=== PATIENT | male | born 1955 | race African-American/Black ===

== ENCOUNTER 2019-04-23 10:33 | Observation (INO) | payer OTHER ==
[~2019-04-23] VITALS: Ht 182.9 cm; Wt 93.0 kg
[2019-04-23] MEDS ORDERED: SODIUM CHLORIDE 0.9% 1000ML 1,000 ML IV STA (10:37)
[2019-04-23] MEDS ORDERED: ASPIRIN 81 MG CHEW TAB PO ONE ×2 (10:45→12:45)
[2019-04-23] MEDS ORDERED: ONDANSETRON HCL INJ 2MG/ML 2ML 2 MG/ML VIAL IV ONE (11:00)
[2019-04-23 11:22] LABS: BASOPHILS % 0.6 % (0.0-1.0); EOSINOPHILS % 0.8 % (0.0-6.0); HEMATOCRIT 33.8 % (38.2-49.6); HEMOGLOBIN 11.7 g/dL (14.0-18.0); LYMPHOCYTES # (AUTO) 0.8 (1.0-3.2); LYMPHOCYTES % 22.4 % (18.0-39.1); MEAN CORPUSCULAR HEMOGLOBIN 33.8 pg (28-32); MEAN CORPUSCULAR HGB CONC 34.6 g/dL (31-35); MEAN CORPUSCULAR VOLUME 97.7 fL (81-99); MONOCYTES # (AUTO) 0.4 (0.2-0.8); MONOCYTES % 10.5 % (4.4-11.3); NEUTROPHILS # (AUTO) 2.3 (2.1-6.9); NEUTROPHILS % 65.4 % (38.7-80.0); PLATELET COUNT 165 x10e3/uL (140-360); RED BLOOD COUNT 3.46 x10e6/uL (4.3-5.7); RED CELL DISTRIBUTION WIDTH 12.2 % (11.7-14.4)
[2019-04-23 11:40] LABS: INR 0.95; PROTHROMBIN TIME 13.2 seconds (11.9-14.5)
[2019-04-23 11:49] LABS: ALBUMIN 4.1 g/dL (3.5-5.0); ALBUMIN/GLOBULIN RATIO 1.2 (0.8-2.0); ANION GAP 15.8 mmol/L (8-16); CALCIUM 9.8 mg/dL (8.4-10.2); CREATININE, SERUM 1.7 mg/dL (0.72-1.25); POTASSIUM 3.8 mmol/L (3.5-5.1)
--- NOTE | 2019-04-23 12:32 | Diagnostic Imaging Report ---
TECHNIQUE: Frontal view of the chest. INDICATION: ^N/V ^[id number] ^1102. COMPARISON: None. FINDINGS: LINES/TUBES: None. LUNGS: The lungs are well inflated and clear. No consolidation or pulmonary edema. PLEURA: No pneumothorax or significant pleural effusion. HEART AND MEDIASTINUM: The cardiomediastinal silhouette is within normal limits. SOFT TISSUES AND BONES: Slightly increased density over the scapula appears nonaggressive and is possibly overlapping tissue. IMPRESSION: No acute cardiopulmonary abnormalities. Signed by: Marty Alexander JR, MD on 04/23/2019 12:29 PM
[2019-04-23] MEDS ORDERED: ONDANSETRON HCL INJ 2MG/ML 2ML 2 MG/ML VIAL IV PRN ×2 (12:45→16:30)
[2019-04-23] MEDS: SODIUM CHLORIDE 0.9% 1000ML 1,000 ML IV SCH (12:50)
[2019-04-23] MEDS ORDERED: HYDROCODON-ACE1 EAC9 PO (12:54)
[2019-04-23] MEDS ORDERED: ATORVASTATIN CA40 MG PO (12:54)
[2019-04-23] MEDS ORDERED: HYDRALAZINE HC100 MG PO (12:54)
[2019-04-23] MEDS ORDERED: CLONIDINE HCL0.2 MG PO (12:54)
[2019-04-23] MEDS ORDERED: NIFEDIPINE ER90 M1 PO (12:54)
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
--- OUTSIDE RECORDS SUMMARY | 2019-04-23 14:01 | XMS REPORT ---
Author Author [facility] Organization [facility] Address Unknown Phone Unavailable Care Team Providers Care Superintendent Power Name Role Phone BANG RIVAS Unavailable Unavailable Payers Payer Name Policy Type Policy Number Effective Date Expiration Date Problems This patient has no known problems. Allergies, Adverse Reactions, Alerts Allergy Name Allergy Type Status Severity Reaction(s) Onset Date Inactive Date Treating Clinician Comments ibuprofen DA Active AR 2019-02-21 00:00:00 Medications This patient has no known medications. Results Test Description Test Time Test Comments Text Results Atomic Results Result Comments CHEST SINGLE (PORTABLE) 2019-04-23 12:26:00 [place] [address] Patient Name: RAJANI DE LA GARZA MR #: [id number] : 1955 Age/Sex: 64/M Req #: [id number] Adm Physician: Ordered by: BANG RIVAS DO Report #: [id number] Location: ER Room/Bed: Procedure: [id number] DX/CHEST SINGLE (PORTABLE) Exam Date: 04/23/19 Exam Time: 1102 REPORT STATUS: Signed TECHNIQUE: Frontal view of the chest. INDICATION: N/V [id number] 1101. COMPARISON: None. FINDINGS: LINES/TUBES: None. LUNGS: The lungs are well inflated and clear. No consolidation or pulmonary edema. PLEURA: No pneumothorax or significant pleural effusion. HEART AND MEDIASTINUM: The cardiomediastinal silhouette is within normal limits. SOFT TISSUES AND BONES: Slightly increased density over the scapula appears nonaggressive and is possibly overlapping tissue. IMPRESSION: No acute cardiopulmonary abnormalities. Signed by: Marty Alexander JR, MD on 04/23/2019 12:29 PM Dictated By: MARTY ALEXANDER MD 1229 Transcribed By: WILSON on 04/23/19 1229 COPY TO: BANG RIVAS DO BASIC METABOLIC PANEL 2019-02-25 03:44:00 SODIUM (test code=NA) 141 mmol/L 136-145 POTASSIUM (test code=K) 3.6 mmol/L 3.5-5.1 CHLORIDE (test code=CL) 108.0 mmol/L 98-107 CARBON DIOXIDE (test code=CO2) 27.0 mmol/L 21-32 ANION GAP (test code=GAP) 9.6 10-20 GLUCOSE (test code=GLU) 114 mg/dL 74-106 BLOOD UREA NITROGEN (test code=BUN) 19 mg/dL 7-18 GLOMERULAR FILTRATION RATE (test code=GFR) 47 mL/min >=60 Estimated GFR by using Modified MDRD formula.Chronic kidney disease is defined as either kidney damageor GFR <60 mL/min/1.73 m2 for >3 months. CREATININE (test code=CREAT) 1.80 mg/dL 0.7-1.3 BUN/CREATININE RATIO (test code=BUN/CREA) 10.4 10-20 CALCIUM (test code=CA) 9.0 mg/dL 8.5-10.1 BASIC METABOLIC [id number] 03:28:00* Test Item Value Reference Range Comments SODIUM (test code=NA) 141 mmol/L 136-145 POTASSIUM (test code=K) 3.6 mmol/L 3.5-5.1 CHLORIDE (test code=CL) 108.0 mmol/L 98-107 CARBON DIOXIDE (test code=CO2) mmol/L 21-32 ANION GAP (test code=GAP) 10-20 GLUCOSE (test code=GLU) mg/dL 74-106 BLOOD UREA NITROGEN (test code=BUN) mg/dL 7-18 GLOMERULAR FILTRATION RATE (test code=GFR) mL/min >=60 CREATININE (test code=CREAT) mg/dL 0.7-1.3 BUN/CREATININE RATIO (test code=BUN/CREA) 10-20 CALCIUM (test code=CA) mg/dL 8.5-10.1 BASIC METABOLIC [id number] 14:41:00* Test Item Value Reference Range Comments SODIUM (test code=NA) 144 mmol/L 136-145 POTASSIUM (test code=K) 3.8 mmol/L 3.5-5.1 CHLORIDE (test code=CL) 110.0 mmol/L 98-107 CARBON DIOXIDE (test code=CO2) 26.0 mmol/L 21-32 ANION GAP (test code=GAP) 11.8 10-20 GLUCOSE (test code=GLU) 91 mg/dL 74-106 BLOOD UREA NITROGEN (test code=BUN) 20 mg/dL 7-18 GLOMERULAR FILTRATION RATE (test code=GFR) 50 mL/min >=60 Estimated GFR by using Modified MDRD formula.Chronic kidney disease is defined as either kidney damageor GFR <60 mL/min/1.73 m2 for >3 months. CREATININE (test code=CREAT) 1.70 mg/dL 0.7-1.3 BUN/CREATININE RATIO (test code=BUN/CREA) 11.5 10-20 CALCIUM (test code=CA) 9.4 mg/dL 8.5-10.1 BASIC METABOLIC [id number] 14:38:00* Test Item Value Reference Range Comments SODIUM (test code=NA) 144 mmol/L 136-145 POTASSIUM (test code=K) 3.8 mmol/L 3.5-5.1 CHLORIDE (test code=CL) 110.0 mmol/L 98-107 CARBON DIOXIDE (test code=CO2) mmol/L 21-32 ANION GAP (test code=GAP) 10-20 GLUCOSE (test code=GLU) mg/dL 74-106 BLOOD UREA NITROGEN (test code=BUN) mg/dL 7-18 GLOMERULAR FILTRATION RATE (test code=GFR) mL/min >=60 CREATININE (test code=CREAT) mg/dL 0.7-1.3 BUN/CREATININE RATIO (test code=BUN/CREA) 10-20 CALCIUM (test code=CA) mg/dL 8.5-10.1 - PULM VENT PERF [id number] 11:37:00 FAX: Cassandra Fernandez MD [phone] [place]: St: ADM FAX: Negro Cardona MD [phone] FAX: Tyler Davison NP [phone] Name: RAJANI DE LA GARZA [facility] : 1955 Age/S: 63/M [address] [facility] Unit #: [id number] [place] [address] Phys: Tyler Davison NP Acct: [id number] Dis Date: Status: ADM IN PH ONE #: [phone] Exam Date: 02/23/2019 1132 FAX #: [phone] Reason: R/o pe EXAMS: CPT CODE: [id number] PU LM VENT PERF IMAG 41565 TECHNIQUE - PU LM VENT PERF IMAG . 4.8 mCi xenon-133. 5.4 mCi power technician 99 MAA. COMPARISON: None provided. HISTORY: 63 years Male R/o pe FINDINGS: There are no perfusion defects in the lung baker. There are no ventilation def ects in the lung field. Low probability pulmonary emboli. There are no mismatched ventilation perfusion defects. IMP RESSION: Low probability pulmonary emboli. Electronically Si gned by Darshan Rust M.D. on 02/23/2019 at 2057 Reported a nd signed by: Darshan Rust M.D. CC: Cassandra Gibson MD; Franklin Castañeda MD; Tyler Davison NP Technologist: Ruth Shahid RT(N) Trnscrd Date/Time/By: 02/23/2019 (2650) : By: [email or web address] Orig Print D/T: S: 02/23/2019 (8686) PAGE 1 Signed Report BASIC METABOLIC PANEL 2019-02-23 05:18:00* Test Item Value Reference Range Comments SODIUM (test code=NA) 140 mmol/L 136-145 POTASSIUM (test code=K) 3.5 mmol/L 3.5-5.1 CHLORIDE (test code=CL) 108.0 mmol/L 98-107 CARBON DIOXIDE (test code=CO2) 25.0 mmol/L 21-32 ANION GAP (test code=GAP) 10.5 10-20 GLUCOSE (test code=GLU) 91 mg/dL 74-106 BLOOD UREA NITROGEN (test code=BUN) 26 mg/dL 7-18 GLOMERULAR FILTRATION RATE (test code=GFR) 37 mL/min >=60 Estimated GFR by using Modified MDRD formula.Chronic kidney disease is defined as either kidney damageor GFR <60 mL/min/1.73 m2 for >3 months. CREATININE (test code=CREAT) 2.20 mg/dL 0.7-1.3 BUN/CREATININE RATIO (test code=BUN/CREA) 11.8 10-20 CALCIUM (test code=CA) 9.2 mg/dL 8.5-10.1 THROMBOPLASTIN TIME [id number] 20:28:00* Test Item Value Reference Range Comments THROMBOPLASTIN TIME PARTIAL (test code=PTT) 24.6 seconds 25.0-36.5 IS PATIENT ON ANTICOAGULANTS? [id number] 20:08:00* Test Item Value Reference Range Comments HEMATOCRIT (test code=HCT) 33.4 % 42.0-52.0 PLATELET [id number] 20:08:00* Test Item Value Reference Range Comments PLATELET COUNT (test code=PLT) 133 K/mm3 150-450 - US RETROPERITONEAL [id number] 16:01:00 Name: RAJANI DE LA GARZA [facility] : 1955 Age/S: 63 / M [address] Unit #: [id number] Loc: [place] [address] Phys: Tyler Davison [employer] Acct: [id number] Dis Date: Status: ADM IN PHONE #: [phone] Exam Date: 02/22/2019 1505 FAX #: [phone] Reason: ERVIN VS CKD EXAMS: CPT CODE: [id number] US RETROPERITONEAL COM 33452 TECHNIQUE - US RETROPERITONEAL COM . COMPARISON: None provided. HISTORY: 63 years Male ERVIN VS CKD FINDINGS: Right Kidney: 10.07 x 4.2 x 5.8 cm. Increased echogenicity. No stones. No hydronephrosis. 2.8 cm right kidney cyst.. Right renal cortex measures 1.2 cm. Left Kidney: 10.0 x 5.3 x 5.2 cm. Increased echogenicity. No stones. No hydronephrosis. No focal lesion. Left renal cortex 1.5 cm. Urinary bladder: Urinary bladder is normal. IMPRESSION: Right kidney cyst. Increased echogenicity of the kidneys bilaterally. at 1601 Reported and signed by: Darshan Rust M.D. CC: Cassandra Gibson MD; Negro Castañeda MD; Tyler Davison NP Technologist: [facility] Date/Time: 02/22/2019 (1601) t.RODNEY Orig Print D/T: S: 02/22/2019 (7187) Probe: PAGE 1 Signed Report URINALYSIS [id number] 13:14:00* Test Item Value Reference Range Comments UA COLOR (test code=COLU) YELLOW YELLOW UA APPEARANCE (test code=APPU) CLEAR CLEAR UA GLUCOSE DIPSTICK (test code=DGLUU) NEGATIVE mg/dL NEGATIVE UA BILIRUBIN DIPSTICK (test code=BILU) NEGATIVE mg/dL NEGATIVE UA KETONE DIPSTICK (test code=KETU) NEGATIVE mg/dL NEGATIVE UA SPECIFIC GRAVITY (test code=SGU) 1.018 1.001-1.035 UA BLOOD DIPSTICK (test code=TABITHA) Negative mg/dL NEGATIVE UA PH DIPSTICK (test code=MIKE) 5.0 5.0-8.0 UA PROTEIN DIPSTICK (test code=PROU) 20 (Trace) mg/dL NEGATIVE UA UROBILINIOGEN DIPSTICK (test code=URO) Normal mg/dL NEGATIVE UA NITRITE DIPSTICK (test code=KATERINA) NEGATIVE NEGATIVE UA LEUKOCYTE ESTERASE W REFLEX (test code=LEUUR) NEGATIVE Samy/uL NEGATIVE UA WBC (test code=WBCU) 0-5 per HPF 0-5 UA RBC (test code=RBCU) 0-2 #/HPF 0-5 UA EPITHELIAL CELLS (test code=EPIU) FEW per HPF FEW UA BACTERIA (test code=BACU) FEW #/HPF NONE UA MUCUS (test code=MUCU) FEW #/LPF FEW Urine Source? Clean CatchDRUGS OF ABUSE SCREEN [id number] 13:14:00* Test Item Value Reference Range Comments URN COCAINE (test code=COCAURN) NEGATIVE <300 ng/mL URN CANNABINOIDS (test code=CANNABURN) NEGATIVE <50 ng/mL URN AMPHETAMINE (test code=AMPHETURN) NEGATIVE <1000 ng/mL URN BARBITURATE (test code=BARBITURN) NEGATIVE <200 ng/mL URN BENZODIAZEPINE (test code=BENZOURN) NEGATIVE <200 ng/mL URN OPIATES (test code=OPIATURN) NEGATIVE <300 ng/mL URN PHENCYCLIDINE (PCP) (test code=PHENCURN) NEGATIVE <25 ng/mL URN METHADONE (test code=METHAURN) NEGATIVE <300 ng/mL Urine Source? Clean CatchURINALYSIS [id number] 13:04:00* Test Item Value Reference Range Comments UA COLOR (test code=COLU) YELLOW YELLOW UA APPEARANCE (test code=APPU) CLEAR CLEAR UA GLUCOSE DIPSTICK (test code=DGLUU) NEGATIVE mg/dL NEGATIVE UA BILIRUBIN DIPSTICK (test code=BILU) NEGATIVE mg/dL NEGATIVE UA KETONE DIPSTICK (test code=KETU) NEGATIVE mg/dL NEGATIVE UA SPECIFIC GRAVITY (test code=SGU) 1.018 1.001-1.035 UA BLOOD DIPSTICK (test code=TABITHA) Negative mg/dL NEGATIVE UA PH DIPSTICK (test code=MIKE) 5.0 5.0-8.0 UA PROTEIN DIPSTICK (test code=PROU) 20 (Trace) mg/dL NEGATIVE UA UROBILINIOGEN DIPSTICK (test code=URO) Normal mg/dL NEGATIVE UA NITRITE DIPSTICK (test code=KATERINA) NEGATIVE NEGATIVE UA LEUKOCYTE ESTERASE W REFLEX (test code=LEUUR) NEGATIVE Samy/uL NEGATIVE UA WBC (test code=WBCU) 0-5 per HPF 0-5 UA RBC (test code=RBCU) 0-2 #/HPF 0-5 UA EPITHELIAL CELLS (test code=EPIU) FEW per HPF FEW UA BACTERIA (test code=BACU) FEW #/HPF NONE UA MUCUS (test code=MUCU) FEW #/LPF FEW Urine Source? Clean CatchDRUGS OF ABUSE SCREEN [id number] 13:04:00* Test Item Value Reference Range Comments URN COCAINE (test code=COCAURN) <300 ng/mL URN CANNABINOIDS (test code=CANNABURN) <50 ng/mL URN AMPHETAMINE (test code=AMPHETURN) <1000 ng/mL URN BARBITURATE (test code=BARBITURN) <200 ng/mL URN BENZODIAZEPINE (test code=BENZOURN) <200 ng/mL URN OPIATES (test code=OPIATURN) <300 ng/mL URN PHENCYCLIDINE (PCP) (test code=PHENCURN) <25 ng/mL URN METHADONE (test code=METHAURN) <300 ng/mL Urine Source? Clean [id number] 08:16:00* Test Item Value Reference Range Comments TROPONIN-I (test code=TROPI) 0.058 ng/mL 0-0.045 Results previously called COMMENTS TO LEDGER CLERK: COLLECT 3 HOURS AFTER PREVIOUS [id number] 06:00:00* Test Item Value Reference Range Comments TROPONIN-I (test code=TROPI) 0.072 ng/mL 0-0.045 RESULT VERIFIED BY REPEAT ANALYSIS COMMENTS TO LEDGER CLERK: COLLECT 3 HOURS AFTER PREVIOUS SAMPLELIPID PROFILE (CORONARY RISK)2019-02-22 06:00:00* Test Item Value Reference Range Comments TRIGLYCERIDES (test code=TRIG) 103 mg/dL 20-150 CHOLESTEROL (test code=CHOL) 226 mg/dL 0-200 CHOLESTEROL/HDL RATIO (test code=CHOLHDL) 2.0 RATIO 0-4.9 RISK ASSOCIATED WITH CHOL/HDL RATIOS: Risk Male Female1/2 AVERAGE 3.43 3.27AVERAGE 4.97 4.442X AVERAGE 9.55 7.053X AVERAGE 23.39 11.04 REFERENCE VALUE IS RELATED TO RISK LEVELS ASRECOMMENDED BY THE [facility]. HEART, LUNG, AND BLOOD INST. HDL CHOLESTEROL (test code=HDL) 82 mg/dL 40-60 LIPOPROTEIN LDL (test code=LDL) 120 mg/dL 100-129 RN PERSONNEL, CONTACT PHYSICIAN IMMEDIATELY IF THIS IS A STROKE, AMI OR CAROTID STENOSIS PATIENT WHEN THE LDL >100 (1ST OCCURENCE, THIS ADMISSION) Reference Interval: mg/dL mmol/L Optimal <100 <2.6Near/above optimal 100-129 2.6- 3.3Borderline High 130-159 3.4-4.1High 160-189 4.1-4.9Very High >=190 >=4.9=========This LDL result is a direct measurement.========= BASIC METABOLIC [id number] 05:52:00* Test Item Value Reference Range Comments SODIUM (test code=NA) 137 mmol/L 136-145 POTASSIUM (test code=K) 3.3 mmol/L 3.5-5.1 CHLORIDE (test code=CL) 102.0 mmol/L 98-107 CARBON DIOXIDE (test code=CO2) 25.0 mmol/L 21-32 ANION GAP (test code=GAP) 13.3 10-20 GLUCOSE (test code=GLU) 122 mg/dL 74-106 BLOOD UREA NITROGEN (test code=BUN) 23 mg/dL 7-18 GLOMERULAR FILTRATION RATE (test code=GFR) 34 mL/min >=60 Estimated GFR by using Modified MDRD formula.Chronic kidney disease is defined as either kidney damageor GFR <60 mL/min/1.73 m2 for >3 months. CREATININE (test code=CREAT) 2.40 mg/dL 0.7-1.3 BUN/CREATININE RATIO (test code=BUN/CREA) 9.6 10-20 CALCIUM (test code=CA) 9.0 mg/dL 8.5-10.1 CREATINE KINASE (CK)2019-02-22 05:52:00* Test Item Value Reference Range Comments CREATINE KINASE (CK) (test code=CK) 591 IUnit/L 26-208 [id number] 05:52:00* Test Item Value Reference Range Comments CKMB (test code=CKMBT) 3.1 ng/mL 0-6.0 BASIC METABOLIC [id number] 05:44:00* Test Item Value Reference Range Comments SODIUM (test code=NA) 137 mmol/L 136-145 POTASSIUM (test code=K) 3.3 mmol/L 3.5-5.1 CHLORIDE (test code=CL) 102.0 mmol/L 98-107 CARBON DIOXIDE (test code=CO2) mmol/L 21-32 ANION GAP (test code=GAP) 10-20 GLUCOSE (test code=GLU) mg/dL 74-106 BLOOD UREA NITROGEN (test code=BUN) mg/dL 7-18 GLOMERULAR FILTRATION RATE (test code=GFR) mL/min >=60 CREATININE (test code=CREAT) mg/dL 0.7-1.3 BUN/CREATININE RATIO (test code=BUN/CREA) 10-20 CALCIUM (test code=CA) mg/dL 8.5-10.1 CREATINE KINASE (CK)2019-02-22 05:44:00* Test Item Value Reference Range Comments CREATINE KINASE (CK) (test code=CK) IUnit/L 26-208 [id number] 05:44:00* Test Item Value Reference Range Comments CKMB (test code=CKMBT) ng/mL 0-6.0 CBC W/AUTO [id number] 05:44:00* Test Item Value Reference Range Comments WHITE BLOOD CELL (test code=WBC) 9.6 K/mm3 4.5-12.5 RED BLOOD CELL (test code=RBC) 3.60 mill/mm3 4.0-5.8 HEMOGLOBIN (test code=HGB) 12.0 gram/dL 13.0-17.5 HEMATOCRIT (test code=HCT) 34.6 % 42.0-52.0 MEAN CELL VOLUME (test code=MCV) 96.1 fL 80-98 MEAN CELL HGB (test code=MCH) 33.3 picogram 27.0-33.0 MEAN CELL HGB CONCETRATION (test code=MCHC) 34.7 gram/dL 33.0-36.0 RED CELL DISTRIBUTION WIDTH (test code=RDW) 12.2 % 11.6-16.2 RED CELL DISTRIBUTION WIDTH SD (test code=RDW-SD) 42.8 fL 37.0-51.0 PLATELET COUNT (test code=PLT) 157 K/mm3 150-450 MEAN PLATELET VOLUME (test code=MPV) 11.0 fL 6.7-11.0 NEUTROPHIL % (test code=NT%) 75.4 % 39.0-69.0 IMMATURE GRANULOCYTE % (test code=IG%) 0.3 % 0.0-5.0 LYMPHOCYTE % (test code=LY%) 16.8 % 25.0-55.0 MONOCYTE % (test code=MO%) 7.1 % 0.0-10.0 EOSINOPHIL % (test code=EO%) 0.2 % 0.0-5.0 BASOPHIL % (test code=BA%) 0.2 % 0.0-1.0 NUCLEATED RBC % (test code=NRBC%) 0.0 % 0-0 NEUTROPHIL # (test code=NT#) 7.25 K/mm3 1.8-7.7 IMMATURE GRANULOCYTE # (test code=IG#) 0.03 x10 3/uL 0-0.03 LYMPHOCYTE # (test code=LY#) 1.62 K/mm3 1.0-5.0 MONOCYTE # (test code=MO#) 0.68 K/mm3 0-0.8 EOSINOPHIL # (test code=EO#) 0.02 K/mm3 0.0-0.5 BASOPHIL # (test code=BA#) 0.02 K/mm3 0.0-0.2 NUCLEATED RBC # (test code=NRBC#) 0.00 K/mm3 0.0-0.1 MANUAL DIFF REQUIRED (test code=MDIFF) NO B-TYPE NATRIURETIC [id number] 03:12:00* Test Item Value Reference Range Comments B-TYPE NATRIURETIC PEPTIDE (test code=BNP) 66.4 pgram/mL 0-100 Previously reported result: 66.4 pgram/mLEdited by: FREDERICS on 02/22/19:0312 - XR TOE(S) 2+V [id number] 01:53:00 FAX: Otto Vaz [phone] [place]: St: ADM FAX: Cassandra Fernandez MD [phone] FAX: Negro Cardona MD [phone] Name: RAJANI DE LA GARZA [facility] : 1955 Age/S: 63/M [address] [facility] Unit #: [id number] Loc: [place] [address] Phys: Otto Rouse MD Acct: [id number] Dis Date: Status: ADM IN [facility] #: [phone] Exam Date: 02/22/2019 0120 FAX #: [phone] Reason: 2ND TOE RDUCTION EXAMS: CPT CODE: [id number] XR TOE(S) 2+[place] [address] HISTORY: 2nd t oe reduction Location: C3 FINDINGS: 4 images of the r ight toes are provided. There has been reduction of previously seen sublu xation of the 2nd PIP joint. IMPRESSION: 1. Re duction of previously seen 2nd PIP dislocation. Electronically Cydney d by Bobby Kaye MD on 02/22/2019 at 0153 Reported and signed by: Bobby Kaye MD CC: Otto Rouse; Cassandra Gibson MD; Negro Castañeda MD Technologist: Debbie Lopez Trnscrd Date/Time/By: 02/22/2019 (4053) : By: [email or web address] Orig Print D/T: S: 02/22/2019 (9736) PAGE 1 Signed Report B-TYPE NATRIURETIC [id number] 23:22:00* Test Item Value Reference Range Comments B-TYPE NATRIURETIC PEPTIDE (test code=BNP) 66.4 pgram/mL 0-100 BASIC METABOLIC [id number] 22:33:00* Test Item Value Reference Range Comments SODIUM (test code=NA) 137 mmol/L 136-145 POTASSIUM (test code=K) 4.0 mmol/L 3.5-5.1 CHLORIDE (test code=CL) 104.0 mmol/L 98-107 CARBON DIOXIDE (test code=CO2) 24.0 mmol/L 21-32 ANION GAP (test code=GAP) 13.0 10-20 GLUCOSE (test code=GLU) 138 mg/dL 74-106 BLOOD UREA NITROGEN (test code=BUN) 23 mg/dL 7-18 GLOMERULAR FILTRATION RATE (test code=GFR) 28 mL/min >=60 Estimated GFR by using Modified MDRD formula.Chronic kidney disease is defined as either kidney damageor GFR <60 mL/min/1.73 m2 for >3 months. CREATININE (test code=CREAT) 2.80 mg/dL 0.7-1.3 BUN/CREATININE RATIO (test code=BUN/CREA) 8.2 10-20 CALCIUM (test code=CA) 9.8 mg/dL 8.5-10.1 CREATINE KINASE (CK)2019-02-21 22:33:00* Test Item Value Reference Range Comments CREATINE KINASE (CK) (test code=CK) 742 IUnit/L 26-208 [id number] 22:33:00* Test Item Value Reference Range Comments MAGNESIUM (test code=MAG) 2.2 mg/dL 1.8-2.4 [id number] 22:33:00* Test Item Value Reference Range Comments TROPONIN-I (test code=TROPI) 0.079 ng/mL 0-0.045 Results called to [id number] by TORI 02/21/19 2226Critical results verified and read back by Nurse? Y BASIC METABOLIC [id number] 22:16:00* Test Item Value Reference Range Comments SODIUM (test code=NA) 137 mmol/L 136-145 POTASSIUM (test code=K) 4.0 mmol/L 3.5-5.1 CHLORIDE (test code=CL) 104.0 mmol/L 98-107 CARBON DIOXIDE (test code=CO2) mmol/L 21-32 ANION GAP (test code=GAP) 10-20 GLUCOSE (test code=GLU) mg/dL 74-106 BLOOD UREA NITROGEN (test code=BUN) mg/dL 7-18 GLOMERULAR FILTRATION RATE (test code=GFR) mL/min >=60 CREATININE (test code=CREAT) mg/dL 0.7-1.3 BUN/CREATININE RATIO (test code=BUN/CREA) 10-20 CALCIUM (test code=CA) mg/dL 8.5-10.1 CREATINE KINASE (CK)2019-02-21 22:16:00* Test Item Value Reference Range Comments CREATINE KINASE (CK) (test code=CK) IUnit/L 26-208 [id number] 22:16:00* Test Item Value Reference Range Comments MAGNESIUM (test code=MAG) mg/dL 1.8-2.4 [id number] 22:16:00* Test Item Value Reference Range Comments TROPONIN-I (test code=TROPI) ng/mL 0-0.045 - CT C-SPINE W/O [id number] 21:42:00 Name: RAJANI DE LA GARZA [facility] : 1955 Age/S: 63 / M [address] [facility] Unit #: [id number] Loc: [place] [address] Phys: Otto Rouse MD Acct: [id number] Dis Date: Status: REG ER PHONE #: [phone] Exam Date: 02/21/2019 2135 FAX #: [phone] Reason: NECK PAIN S/P FALL EXAMS: CPT CODE: [id number] CT C-SPINE W/O CONTRAST 40853 HISTORY: NECK PAIN S/P FALL TECHNIQUE: 2.[address] of the cervical spine. Sagittal and coronal reformatted images were generated. Automated exposure control for dose reduction. COMPARISON: None FINDINGS: No acute fracture or subluxation. Craniocervical and cervicothoracic articulations are appropriate. Degenerative changes of the anterior atlantoaxial joint. Straightening of the cervical lordosis. Vertebral body alignment is satisfactory. Vertebral body heights are preserved. Severe disc space loss with disc/osteophyte complex and uncovertebral arthrosis from C2-C3 through C4-C5. Mild-moderate disc space loss with disc bulge and marginal osteophytes from C5-C6 through C7-T1. Multilevel cervical facet arthrosis, most severe at right C5-C6. Mild central canal stenosis from C2-C3 through C4-C5. Moderate-severe foraminal stenosis at C3-C4 and C4-C5. Mild bilateral foraminal stenosis at C7-T1. No prevertebral or paraspinal soft tissue abnormality. Visualized posterior fossa contents are grossly unremarkable. Lung apices are clear. IMPRESSION: No acute fracture or subluxation of the cervical spine. at 2141 Reported and signed by: Laura Ortiz D.O. CC: Otto Rouse MD; Negro Castañeda MD Technologist:Kit Vallejo, RT(R)(CT); ... CTDI: DLP: Trnscb Date/Time: 02/21/2019 ( 2141) t.SDR.LDP1 Orig Print D/T: S: 02/21/2019 (2144) PAGE 1 Signed Report - CT HEAD/BRAIN W/O [id number] 21:37:00 Name: RAJANI DE LA GARZA [facility] : 1955 Age/S: 63 / M [address] [facility] Unit #: [id number] [place] [address] Phys: Otto Rouse MD Acct: [id number] Dis Date: Status: REG ER PHONE #: [phone] Exam Date: 02/21/20192134 FAX #: [phone] Reason: HEAD PAIN S/P FALL EXAMS: CPT CODE: [id number] CT HEAD/BRAIN W/O CONT 80518 HISTORY: HEAD PAIN S/P FALL TECHNIQUE: Noncontrast 2.[address] of the head. Examination acquired within 24 hours of arrival. Automated exposure control for dose reduction; DLP: 709 mGy-cm. COMPARISON: 09/14/14 FINDINGS: No acute hemorrhage. No CT evidence of acute infarct. Mild periventricular chronic microvascular ischemic changes. No intracranial mass or mass effect. No hydrocephalus. No extra-axial fluid collection. Mild left maxillary sinus mucosal thickening. Mastoid air cells and middle ear cavities are clear. Orbital contents are unremarkable. Calvarium and skull base are intact. IMPRESSION: No acute intracranial process. at 2137 Reported and signed by: Laura Ortiz D.O. CC: Otto Rouse MD; Negro Castañeda MD Technologist:Kit Vallejo, RT(R)(CT); ... CTDI: DLP: Trnscb Date/Time: 02/21/2019 (2136) [email or web address] Orig Print D/T: S: 02/21/2019 (2140) PAGE 1 Signed Report - XR FOOT 3 + V [id number] 21:17:00 FAX: Otto Vaz [phone] [place]: [address] St: PRE FAX: Negro Cardona MD [phone] Name: RAJANI DE LA GARZA [facility] : 1955 Age/S: 63/M [address] [facility] Unit #: [id number] Loc: [place] [address] Phys: Otto Rouse MD Acct: [id number] Dis Date: Status: PRE ER PHONE #: [phone] Exam Date: 02/21/20192112 FAX #: [phone] Reason: 2ND TOE PAIN S/P FALL EXAMS: CPT CODE: [id number] XR FOOT 3 + [place] [id number] CLINICAL HISTORY: 2ND TOE PAIN S/P FALL TECHNIQUE: AP, oblique, and lateral views of the right foot COMPARISON: None FINDINGS: No acute fracture or dislocation. Bony tr abecular pattern is unremarkable. No cortical destruction or periosteal re action. Achilles and plantar calcaneal osteophytes. Mild degenerative morse ges of the talonavicular and naviculocuneiform joints. 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 Dorsal di slocation of the 2nd PIP joint. Forefoot soft tissue swelling. IMPRESSION: Dorsal dislocation of the 2nd PIP cara nt. No associated fracture. at 2116 Reported and signed by: Laura Ortiz D.O. CC: Otto Rouse MD; Negro Castañeda MD Technologist: Elly Fernandez Trnscrd Date/Time/By: 02/21/2019 (2116) : By: [email or web address] Orig Print D/T: S: 02/2019 (2119) PAGE 1 Signed Repo rt CBC W/O [id number] 20:59:00* Test Item Value Reference Range Comments WHITE BLOOD CELL (test code=WBC) 10.1 K/mm3 4.5-12.5 RED BLOOD CELL (test code=RBC) 3.91 mill/mm3 4.0-5.8 HEMOGLOBIN (test code=HGB) 12.7 gram/dL 13.0-17.5 HEMATOCRIT (test code=HCT) 38.9 % 42.0-52.0 MEAN CELL VOLUME (test code=MCV) 99.5 fL 80-98 MEAN CELL HGB (test code=MCH) 32.5 picogram 27.0-33.0 MEAN CELL HGB CONCETRATION (test code=MCHC) 32.6 gram/dL 33.0-36.0 RED CELL DISTRIBUTION WIDTH (test code=RDW) 12.2 % 11.6-16.2 PLATELET COUNT (test code=PLT) 167 K/mm3 150-450 MEAN PLATELET VOLUME (test code=MPV) 10.7 fL 6.7-11.0 CT Abdomen w/ + w/o [id number] 15:45:04Patient: ARJANI DE LA GARZA Date/Time08/21/2018 15:27 CSTReason for ExamR16.0ReportCT OF THE ABDOMEN WITH AND WITHOUT CONTRASTLOCATION CODE: R 16History: R 16Technique: Axial contrast and noncontrast enhanced CT images of the abdomen performed with arterial and 5 minute venous delays. The images were reviewed in soft tissue, lung and bone windows. Sagittal and coronal images were reformatted. No PO contrast was administered.One or more the following dose reduction techniques is utilized: Use of iterative reconstruction, automated exposure control, adjustment of the mAs and Kv for the patient's weight. DLP 2535.45 mGy-cm.FINDINGS:Lung Bases: Clear.Liver: Hypodense lesion involving liver segment II measuring approximately 2.9 x 1.8 x 3.8 cm demonstrates peripheral puddling on the arterial phase image and completely fi lls in on the delayed images. Appearance favors hemangioma. Diffuse low-attenuat ion throughout the liver compatible with diffuse steatosis.Gallbladder: No signi ficant abnormality.Pancreas: No significant abnormality.Spleen: No significant a bnormality.Kidneys: 1.8 cm slightly exophytic mid left renal cyst. 2.5 cm right renal inferior pole cyst. No hydronephrosis or calculi.Adrenals: No significant abnormality.Bowel: No bowel obstruction.Appendix: Normal.Peritoneum: No free int ra-abdominal air or fluid.Vascular: Mild atherosclerosis of aorta. No aneurysm.L ymph nodes: No evidence of pericardial medical clinic lymphadenopathy.Osseous: N o aggressive osseous lesions. Mild hypertrophic changes along the spine.IMPRESSI ON:1. 2.9 x 1.8 x 3.8 cm enhancing lesion, liver segment II compatible with a b enign hemangioma.2. Note of diffuse hepatic steatosis.Exam Date/Time08/21/2018 15: 27 CSTReport3. Benign bilateral renal cysts noted. Final Dictated by: MD Rojo Eniola FDictated DT/TM: 08/21/2018 3:33 pmSigned by: Hunter Castillo MD, Eniola FSigned (Electronic Signature): 08/21/2018 3:45 pm
--- OUTSIDE RECORDS SUMMARY | 2019-04-23 14:02 | XMS REPORT ---
Author Author Admin, [place] Organization [facility] Address [address] [place] [address] Phone ;[phone] Allergies, Adverse Reactions, Alerts Allergy Name Reaction Description Start Date Severity Status Provider MOTRIN Severe Active Michelle Washington WAREDRESSER Conditions or Problems Problem Name Problem Code Onset Date Status Entry Date Provider Comment Standard Description Annotate Chronic kidney disease stage 3 585.3 Active Michelle ANDERSONP Chronic kidney disease, Stage III (moderate) Hyperlipidemia 272.4 Active Michelle Washington WAREDRESSER Other and unspecified hyperlipidemia BMI 28.0-28.9 Active Michelle Funeznandez WAREDRESSER Body Mass Index 28.0-28.9, adult Erectile dysfunction 607.84 Active Michelle Washington WAREDRESSER Impotence of organic origin Hypertension benign essential 401.1 Active Michelle Washington WAREDRESSER Benign essential hypertension Overweight Active Michelle Funeznandez WAREDRESSER Overweight ALCOHOL USE DISORDER, SEVERE Active Cassandra Mccloud MD ANXIETY DISORDER, UNSPECIFIED Active Barron Acharya BOARD LAYER Anxiety state, unspecified DEPRESSIVE DISORDER, MAJOR, RECURRENT EPISODE, MODERATE Active Barron Acharya BOARD LAYER Major depressive disorder, recurrent episode, moderate degree Hyperlipidemia ICD-272.4 Inactive Michelle Washington WAREDRESSER Screening for prostate cancer ICD-V76.44 Inactive Michelle Washington WAREDRESSER Hyperlipidemia 272.4 Resolved Michelle Washington WAREDRESSER Other and unspecified hyperlipidemia Screening for prostate cancer V76.[address] [facility] Screening for malignant neoplasms of prostate Medication List Medication Instructions Start Date Stop Date Generic Name NDC Status Provider Patient Instruction ASPIRIN 81 MG ORAL TABLET DELAYED RELEASE 1 by mouth every day ASPIRIN 53689170884 Active Michelle Washington [facility] Active ATORVASTATIN CALCIUM 40 MG ORAL TABLET take one tab By Mouth take at bedtime for cholesterol ATORVASTATIN CALCIUM 58423383488 Active Michelle [facility] Active HYDRALAZINE HCL 100 MG ORAL TABLET take one tab By Mouth Three Times a Day for blood pressure HYDRALAZINE HCL 93594983539 Active Michelle Felix [facility] Active SILDENAFIL CITRATE 50 MG ORAL TABLET Take one tab By Mouth 30 minutes to 1 hour before intercourse SILDENAFIL CITRATE 68237444085 Active Michelle Felix [facility] Active ADALAT CC 90 MG ORAL TABLET EXTENDED RELEASE 24 HOUR take 1 tab By Mouth every evening NIFEDIPINE 25691713771 Active Cassandra Mccloud MD Active CARVEDILOL 25 MG ORAL TABLET Take 1 tab By Mouth Twice a Day CARVEDILOL 93057536493 Active Cassandra Mccloud MD Active CLONIDINE HCL 0.2 MG ORAL TABLET take one tab By Mouth twice a day CLONIDINE HCL 87215024416 Active Michelle Felix [facility] Active INTEGRA PLUS ORAL CAPSULE Take 1 tab By Mouth daily [id number] CMP-C-BIOT 87114796861 Active Cassandra Mclcoud MD Active NORCO 10-325 MG ORAL TABLET take 1 tab By Mouth Q6H As Needed pain HYDROCODONE-ACETAMINOPHEN 49659223009 Active Cassandra Mccloud MD Active Advance Directives Directive Description Start Date DISCUSSED - NO DECISION MADE Vital Signs Date Name Value Unit Range Description blood pressure, diastolic, second observation 109 mm[Hg] BP castro blood pressure, diastolic 118 mm[Hg] BP castro blood pressure, systolic, second observation 203 mm[Hg] BP sys blood pressure, systolic 208 mm[Hg] BP sys height E&M 73 [in_us] Bdy height pulse rate E&M 78 /min Heart rate pulse rate #2 71 Heart rate temperature E&M 98 [degF] Body temperature weight E&M 205.20 [lb_av] Weight Measured blood pressure, diastolic 80 mm[Hg] BP castro blood pressure, systolic 168 mm[Hg] BP sys height E&M 73 [in_us] Bdy height pulse rate E&M 79 /min Heart rate weight E&M 209 [lb_av] Weight Measured blood pressure, diastolic 84 mm[Hg] BP castro blood pressure, systolic 130 mm[Hg] BP sys height E&M 73 [in_us] Bdy height pulse rate E&M 75 /min Heart rate weight E&M 212 [lb_av] Weight Measured blood pressure, diastolic 67 mm[Hg] BP castro blood pressure, systolic 101 mm[Hg] BP sys height E&M 73 [in_us] Bdy height pulse rate E&M 99 /min Heart rate respiratory rate E&M 12 /min Resp rate temperature E&M 98.2 [degF] Body temperature weight E&M 215.50 [lb_av] Weight Measured blood pressure, diastolic 71 mm[Hg] BP castro blood pressure, systolic 106 mm[Hg] BP sys height E&M 73 [in_us] Bdy height pulse rate E&M 65 /min Heart rate respiratory rate E&M 12 /min Resp rate temperature E&M 97.6 [degF] Body temperature weight E&M 218 [lb_av] Weight Measured blood pressure, diastolic 114 mm[Hg] BP castro blood pressure, systolic 210 mm[Hg] BP sys height E&M 73 [in_us] Bdy height pulse rate E&M 60 /min Heart rate weight E&M 215 [lb_av] Weight Measured blood pressure, diastolic 73 mm[Hg] BP castro blood pressure, systolic 128 mm[Hg] BP sys height E&M 73 [in_us] Bdy height pulse rate E&M 71 /min Heart rate weight E&M 222.13 [lb_av] Weight Measured Diagnostic Results Date Name Value Unit Range Description Lab Report: CBC With Differential/Platelet, Comp. Metabolic Panel (14), ... - Chemistry thyroid stimulating hormone, serum 1.830 u[iU]/mL 0.450-4.500 Lab Report: Urinalysis, Routine, Microscopic Examination, [facility] CKD ... - Urinalysis WBC urine on microscopy 0-5 /hpf {Cells}/[HPF] 0 - 5 Lab Report: CBC With Differential/Platelet, Comp. Metabolic Panel (14), ... - Chemistry follicle stimulating hormone, serum 6.6 m[iU]/mL 1.5-12.4 very low density lipoproteins 26 mg/dL 5-40 testosterone, total 382 ng/dL 264-916 Lab Report: Urinalysis, Routine, Microscopic Examination, Litholink CKD ... - Urinalysis epithelial cells, urine 0-10 /[LPF] 0 - 10 Lab Report: CBC With Differential/Platelet, Comp. Metabolic Panel (14), ... - Chemistry chloride, serum 101 mmol/L 96-106 urea nitrogen, blood 27 mg/dL 8-27 Lab Report: Urinalysis, Routine, Microscopic Examination, Litholink CKD ... - Urinalysis leukocyte esterase, urine, by dipstick Negative Negative Lab Report: CBC With Differential/Platelet, Comp. Metabolic Panel (14), ... - Hematology mean corpuscular hemoglobin concentration, RBC 33.2 G/DL % 31.5-35.7 erythrocyte (RBC) count 3.90 X10E6/UL 10*6/mm3 4.14-5.80 Office Visit: Acute Visit - Urinalysis nitrite, urine, semiquantitative negative Lab Report: Urinalysis, Routine, Microscopic Examination, Litholink CKD ... - Urinalysis urine color Yellow Yellow bilirubin, urine Negative Negative Lab Report: CBC With Differential/Platelet, Comp. Metabolic Panel (14), ... - Chemistry Absolute Neutrophils 2.9 X10E3/UL 10*3/uL 1.4-7.0 LDL cholesterol, serum 135 mg/dL 0-99 urea nitrogen/creatinine ratio, serum 13 10-24 Lab Report: CBC With Differential/Platelet, Comp. Metabolic Panel (14), ... - Hematology mean corpuscular volume, RBC 97 fL 79-97 Lab Report: CBC With Differential/Platelet, Comp. Metabolic Panel (14), ... - Chemistry HDL cholesterol, serum 67 mg/dL >39 Lab Report: CBC With Differential/Platelet, Comp. Metabolic Panel (14), ... - Hematology monocytes as percent of blood leukocytes 8 % Not Estab. Lab Report: CBC With Differential/Platelet, Comp. Metabolic Panel (14), ... - Chemistry albumin/globulin ratio, serum 1.8 1.2-2.2 creatinine, serum 2.03 mg/dL 0.76-1.27 cholesterol, serum 228 mg/dL 369-425 7911/05/13 bilirubin, serum, total 0.4 mg/dL 0.0-1.2 Lab Report: CBC With Differential/Platelet, Comp. Metabolic Panel (14), ... - Hematology Eosinophil Absolute Count 0.2 X10E3/UL 10*3/uL 0.0-0.4 Lab Report: Urinalysis, Routine, Microscopic Examination, Litholink CKD ... - Urinalysis appearance, urine Clear Clear Office Visit: Acute Visit - Urinalysis blood in urine (hemoglobin) by dipstick negative Lab Report: CBC With Differential/Platelet, Comp. Metabolic Panel (14), ... - Chemistry aspartate aminotransferase (SGOT), serum 23 U/L 0-40 Lab Report: CBC With Differential/Platelet, Comp. Metabolic Panel (14), ... - Hematology red blood cell distribution width 13.1 % 12.3-15.4 Lab Report: Urinalysis, Routine, Microscopic Examination, [facility]olink CKD ... - Urinalysis urinalysis, microscopic examination See below: pH, urine, semiquantitative 5.5 5.0-7.5 Lab Report: CBC With Differential/Platelet, Comp. Metabolic Panel (14), ... - Hematology leukocyte count, blood 5.2 X10E3/UL 10*3/mm3 3.4-10.8 Lab Report: CBC With Differential/Platelet, Comp. Metabolic Panel (14), ... - Chemistry potassium, serum 4.6 mmol/L 3.5-5.2 albumin, serum 4.6 g/dL 3.6-4.8 immature granulocytes, percentage of total cells, blood 0 % Not Estab. Lab Report: CBC With Differential/Platelet, Comp. Metabolic Panel (14), ... - Hematology lymphocyte count, blood, automated 1.6 X10E3/UL 10*3/mm3 0.7-3.1 hematocrit, blood 38.0 % 37.5-51.0 Lab Report: CBC With Differential/Platelet, Comp. Metabolic Panel (14), ... - Chemistry sodium, serum 140 mmol/L 134-144 Lab Report: CBC With Differential/Platelet, Comp. Metabolic Panel (14), ... - Hematology neutrophils as percent of blood leukocytes 58 % Not Estab. basophils as percent of blood leukocytes 0 % Not Estab. Lab Report: Urinalysis, Routine, Microscopic Examination, Litholink CKD ... - Chemistry specific gravity, body fluid 1.006 1.005-1.030 RBC, Urine 0-2 /hpf /[HPF] 0 - 2 Lab Report: Urinalysis, Routine, Microscopic Examination, Litholink CKD ... - Urinalysis protein, urine, semiquantitative (dipstick) 1+ Negative/Trace Lab Report: CBC With Differential/Platelet, Comp. Metabolic Panel (14), ... - Chemistry carbon dioxide, venous blood 23 mmol/L 20-29 Lab Report: Urinalysis, Routine, Microscopic Examination, Litholink CKD ... - Chemistry nitrate, urine Negative Negative Lab Report: CBC With Differential/Platelet, Comp. Metabolic Panel (14), ... - Chemistry triglyceride, serum, fasting 130 mg/dL 0-149 calcium, serum 10.1 mg/dL 8.6-10.2 alanine aminotransferase (SGPT), serum 25 U/L 0-44 Lab Report: CBC With Differential/Platelet, Comp. Metabolic Panel (14), ... - Hematology mean corpuscular hemoglobin, RBC 32.3 pg 26.6-33.0 Lab Report: Urinalysis, Routine, Microscopic Examination, Litholink CKD ... - Urinalysis bacteria, urine microscopy None seen None seen/Few Lab Report: CBC With Differential/Platelet, Comp. Metabolic Panel (14), ... - Chemistry protein, total, serum 7.2 g/dL 6.0-8.5 alkaline phosphatase, serum 58 U/L 39-117 Lab Report: CBC With Differential/Platelet, Comp. Metabolic Panel (14), ... - Hematology hemoglobin, blood 12.6 g/dL 13.0-17.7 lymphocytes as percent of blood leukocytes 31 % Not Estab. Lab Report: CBC With Differential/Platelet, Comp. Metabolic Panel (14), ... - Chemistry hemoglobin A1C, blood, as % of total hemoglobin 4.8 % 4.8-5.6 Lab Report: Urinalysis, Routine, Microscopic Examination, Litholink CKD ... - Urinalysis glucose, urine, semiquantitative Negative Negative Lab Report: CBC With Differential/Platelet, Comp. Metabolic Panel (14), ... - Genetics/fertility eGFR if 40 mL/min/1.73m2 >59 Lab Report: CBC With Differential/Platelet, Comp. Metabolic Panel (14), ... - Hematology basophil count, absolute 0.0 x10E3/uL 0.0-0.2 Lab Report: CBC With Differential/Platelet, Comp. Metabolic Panel (14), ... - Chemistry globulin, serum 2.6 1.5-4.5 Estimated Glomerular Filtration Rate (calc) 34 mL/min/1.73m2 >59 Lab Report: Urinalysis, Routine, Microscopic Examination, Litholink CKD ... - Basic Occult Blood, urine Trace Negative Lab Report: CBC With Differential/Platelet, Comp. Metabolic Panel (14), ... - Chemistry testosterone, serum, free 7.8 pg/mL 6.6-18.1 luteinizing hormone, serum 7.5 m[iU]/mL 1.7-8.6 Lab Report: CBC With Differential/Platelet, Comp. Metabolic Panel (14), ... - Hematology eosinophils as percent of blood leukocytes 3 % Not Estab. Lab Report: CBC With Differential/Platelet, Comp. Metabolic Panel (14), ... - Chemistry blood glucose, random 101 mg/dL 65-99 Lab Report: Urinalysis, Routine, Microscopic Examination, Litholink CKD ... - Urinalysis urobilinogen, urine, semiquantitative (dipstick) 0.2 0.2-1.0 Lab Report: CBC With Differential/Platelet, Comp. Metabolic Panel (14), ... - Chemistry prostate specific antigen 0.9 ng/mL 0.0-4.0 Lab Report: CBC With Differential/Platelet, Comp. Metabolic Panel (14), ... - Hematology monocyte count, blood, automated 0.4 X10E3/UL 10*3/uL 0.1-0.9 Lab Report: Urinalysis, Routine, Microscopic Examination, [facility] CKD ... - Urinalysis ketones, urine, by test strip Negative Negative Lab Report: CBC With Differential/Platelet, Comp. Metabolic Panel (14), ... - Hematology platelet count 163 X10E3/UL 10*3/mm3 150-379 Encounters Date Encounter Provider Code Facility 11:00:00 CDT Est Patient Detailed - [id number] [facility] CPT-46146 [facility] 08:29:24 CDT Est Patient Detailed - 66211 Cassandra Mccloud MD CPT-60335 [facility] 08:53:58 CDT Est Patient Exp Problem - 63783 Cassandra Mccloud MD CPT-54474 [facility] 08:51:49 CDT Est Patient Exp Problem - [id number] [facility] CPT-92049 [facility] 10:21:42 CDT New Patient Detailed - [id number] [facility] CPT-94049 [facility] 10:52:37 CDT Est Patient Exp Problem - [id number] Cassandra Mccloud MD CPT-60064 [facility] Procedures Code Procedure Name Date Entry Date Standard Description CPT-02130 Handling of specimen for transfer 11:00:00 CDT CPT-99223 Venipuncture 10:59:57 CDT CPT-76031 Psychotherapy 30 (16-37*) min - 42413 (with patient and/or family member) 12:42:46 CDT CPT-36818 Psychotherapy 45 (38-52*) min - 23309 (with patient and/or family member) 12:31:56 CDT CPT-42557 Urinalysis - Dip only - In House 10:21:43 CDT CPT-45186 Handling of specimen for transfer 10:21:42 CDT CPT-95416 Venipuncture 10:21:40 CDT CPT-96786 Psychotherapy 45 (38-52*) min - 15143 (with patient and/or family member) 09:43:55 CDT CPT-01549 Psychotherapy 45 (38-52*) min - 34852 (with patient and/or family member) 10:23:00 CDT CPT-50206 Diagnostic evaluation with medical - 55005 12:18:35 CDT CPT-38080 Diagnostic evaluation (no medical) - 69276 13:18:41 BID WRITER
[2019-04-23] MEDS ORDERED: HYDRALAZINE HCL 20 MG/ML VIAL IV PRN (14:15)
[2019-04-23 14:45] VITALS: BP_SYST 172; BP_DIAS 95; BP_DIAS 99
--- NOTE | 2019-04-23 15:45 | NUR ---
Patient arrived from ED in wheelchair, IV infusing via R AC 18G PIV. Initiating POC for GI, HTN, Cardiac problems. Dr. Neely notified of admisson. The patient is alert and aware of what is going on and is able to ambulate and independent for care.
[2019-04-23] MEDS ORDERED: ACETAMINOPHEN 325 MG TAB PO PRN (16:30)
[2019-04-23] MEDS ORDERED: MELATONIN 5 MG TABLET PO PRN (16:30)
[2019-04-23] MEDS ORDERED: CARVEDILOL 12.5 MG TAB PO SCH (17:00)
--- NOTE | 2019-04-23 17:00 | NUR ---
Patient has had a carotid doppler at bedside, has had a CT, and is awaiting an US of abdomen. Dr. Bland has been consulted and ordered an ECHO
[2019-04-23] MEDS: CARVEDILOL 3.125 MG TAB PO SCH (17:52)
--- NOTE | 2019-04-23 18:38 | History and Physical ---
CHIEF COMPLAINT: Presyncope. HISTORY OF PRESENT ILLNESS: This is a 64-year-old male with known history of hypertension, alcohol abuse, anxiety disorder, depression disorder, overweight, who presented to the emergency room department after he was at the local GI specialist in which he began to have this lightheadedness and dizziness in a presyncopal state. The patient reports that he was doing his paperwork at the GI office and felt very lightheaded and dizzy, but did not pass out. There were no reports of any stroke-like symptoms, slurred speech, facial drooping, any weakness anywhere, and no reports of any seizure-like activity. The patient was alert, awake, oriented, according to the at bedside during this whole entire episode. The patient denies any chest pain or any palpitations. He had a workup at [facility] with a chemical research worker, in which he was complaining of a syncopal episode. At that time, he was worked up, needed an outpatient followup with Cardiology for further management and care, but he has an appointment sometime this month to see him. He has not seen that physician. The patient was seen and evaluated at bedside on the medical floor. He is currently doing well with no complaints. He did present with low blood pressure and a low heart rate, which seems that the patient seems to be very dehydrated on exam. REVIEW OF SYSTEMS: Pertinent positives: Lightheadedness, dizziness, pre-syncopal episode. Pertinent negatives: Denies any chest pain, palpitation, nausea, vomiting, diarrhea, dysuria, hematuria, frequency, urgency, abdominal pain, headaches, shortness of breath, cough, congestion, fever, or any other complaints. The rest of the 14-point review of systems have been reviewed with the patient and are negative. ALLERGIES: NO KNOWN DRUG ALLERGIES. HOME MEDICATIONS: 1. He takes clonidine 0.2 mg daily. 2. He takes hydralazine 100 mg b.i.d. 3. [place] 10 mg every 6 hours as needed for pain. 4. Lipitor 40 mg daily. 5. Nifedipine XL 90 mg daily. PAST MEDICAL HISTORY: Hypertension, depression, anxiety, alcohol abuse, overweight, erectile dysfunction. PAST SURGICAL HISTORY: Reports none. FAMILY HISTORY: Hypertension and diabetes. SOCIAL HISTORY: He is an alcoholic. Does smoke. No drugs. PHYSICAL EXAMINATION: VITAL SIGNS: Temperature 97.5. Pulse 71 on admission, pulse was 56. His respiratory rate was 16 on admission. Blood pressure was 104/98, currently 165/86. Pulse ox 100% on room air. GENERAL: Not in acute distress. Alert, oriented x3. Cooperative on examination. HEENT: Head normocephalic, atraumatic. Eyes; pupils are equal and reactive to light bilaterally. Extraocular movements intact bilaterally. NECK: Supple. Good range of motion. Throat; no evidence of erythema or exudates in the posterior pharynx. Has poor dentition. PULMONARY: Clear to auscultation bilaterally. No wheezing, no rales, no rhonchi, and no crackles appreciated. CARDIOVASCULAR: Positive S1 and S2. No murmurs, rubs, or gallops appreciated. ABDOMEN: Soft, nondistended, and nontender to palpation. Bowel sounds present. MUSCULOSKELETAL: Strength is 5/5 throughout. No evidence of any muscle deficits on examination. No weakness appreciated. NEUROLOGIC: Cranial nerves 2 through 12 grossly intact. No evidence of any neurological deficits on exam. SKIN: Intact. Warm to touch. Good cap refill. PSYCHIATRIC: Normal affect and mood. EXTREMITIES: No edema. Good range of motion throughout LABORATORY DATA: Labs show white count was 3.5, hemoglobin 11.7, hematocrit 34, platelets of 165. Coagulation PT 13, INR 0.95, PTT 23. Chemistry, sodium 133, potassium 3.8, chloride 99, bicarb 22, anion gap of 15. BUN is 12, creatinine is 1.7, glucose 162, calcium 9.8, total bilirubin was 1.3. AST 107, ALT 103. CK 754. Troponin is negative. Albumin 4.1, lipase is 103. MICROBIOLOGY: None. IMAGING STUDIES: Chest x-ray was negative. CT brain pending. Carotid ultrasound pending. A 2D echo pending IMPRESSION: 1. Presyncopal episode with lightheadedness and dizziness. 2. Acute kidney injury versus chronic kidney disease, unknown baseline creatinine. 3. 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 4. Elevated glucose levels, concerning for type 2 diabetes. 5. Morbidly obese. 6. Hypertension. PLAN: At this time, in relation to a presyncopal episode, the way his story goes, it seems he had more of a dehydration state based on his creatinine, based on his blood pressure and his heart rate. He does take significant amount of blood pressure medications at home. He does look dehydrated on exam. We will put him on IV fluids. Get a carotid ultrasound, 2D echo, and a CT brain. Cardiology was consulted. We will trend the troponins and continue with cardioprotective medications. In relation to his renal function, we will get a.m. labs, continue with IV fluid hydration. His LFTs are elevated. He does have a history of chronic alcohol abuse. I feel that this is likely due to alcohol liver cirrhosis. We will go ahead and get a right upper quadrant ultrasound as well to evaluate and treat. His glucose levels are elevated. He likely has underlying type 2 diabetes. We will get a hemoglobin A1c. In relation to his high blood pressure, I am just going to start him only on nifedipine and Coreg, low-dose. He did come in with a low heart rate. That with hydralazine, clonidine, and Coreg can cause heart block, so at this time, just nifedipine and Coreg for now. P.r.n. hydralazine, monitor closely. His blood pressure is much improved right now. We will put him on Lovenox for DVT prophylaxis. Encourage ambulation. Otherwise, resume same home medications as well. AUTOMOTIVE INTERNET SALES MANAGER: Cardiology. MD MIGUEL Rubin/MOLLY /[id number]
--- NOTE | 2019-04-23 18:46 | Diagnostic Imaging Report ---
EXAMINATION: Abdominal ultrasound. CLINICAL INDICATION: Elevated liver enzymes COMPARISON: None DISCUSSION: Transverse and longitudinal images of the upper abdomen were obtained. The liver is normal in size measuring 15.8 centimeters in length in the right midclavicular line and shows increased echogenicity. A 1.7 cm hypoechoic lesion in the left hepatic lobe. There is no intrahepatic biliary dilatation. The common bile duct measures 0.3 cm. The main portal vein measures 1 cm. The gallbladder is contracted. The visualized portions of the pancreatic body are unremarkable. The spleen is normal in echogenicity and size measuring 11 centimeters in length. The right kidney measures 10.3 centimeters in length and the left kidney measures 10.7 centimeters. There is normal renal cortical echogenicity and no hydronephrosis, solid mass or shadowing calculi. A right renal 3.3 cm simple cyst. The visualized portions of the great vessels are normal. No free fluid is seen. IMPRESSION: Increased hepatic echogenicity can be seen in steatosis or other chronic inflammatory condition. Indeterminate 1.7 cm hypodense lesion in the left hepatic lobe. A nonemergent CT/MRI liver protocol suggested. Signed by: Dr. West Ortega M.D. on 04/23/2019 6:43 PM
--- NOTE | 2019-04-23 18:58 | Diagnostic Imaging Report ---
EXAMINATION: Head CT HISTORY: Syncope and dizziness. COMPARISON: None. TECHNIQUE: Multidetector axial images were obtained without contrast from the foramen magnum to the vertex . The images were reconstructed using brain and bone algorithms. Thin section brain images were reformatted into coronal and sagittal planes. Image quality: Motion/streaking artifact limits the evaluation of the skull base and posterior cranial fossa. Dose modulation, iterative reconstruction, and/or weight based adjustment of the mA/kV was utilized to reduce the radiation dose to as low as reasonably achievable. FINDINGS: Parenchyma: 1. Mildly confluent white matter hypodensities, most likely chronic microvascular ischemic changes. 2. No mass or hemorrhage. No CT evidence of acute territorial vascular insult. Extra-axial spaces: No abnormal density. No extra-axial fluid collections Brain volume: Moderate generalized brain volume loss. Ventricles: No hydrocephalus or displacement. Arteries: No density suggestive of thrombus. Dural sinuses: No abnormal density. Extra-axial spaces: No abnormal density. Foramen magnum: No mass, Chiari malformation, or basilar invagination. Sella: No obvious mass. Paranasal/mastoid sinuses: Imaged portions unremarkable. Skull/Scalp: No lytic or blastic lesions. No fractures. IMPRESSION: No acute intracranial abnormalities. Mild chronic microvascular changes. Mild generalized brain volume loss. Signed by: Dr. Hannah Rushing M.D. on 04/23/2019 6:54 PM
--- NOTE | 2019-04-23 19:13 | NUR ---
Bedside rounds completed with oncoming nurse Jolanta Cagle.
[2019-04-23 20:00] VITALS: BP 186/95
[2019-04-23] MEDS: NIFEDIPINE CR 30 MG TAB PO SCH (20:15)
[2019-04-23 20:33] LABS: CREATINE KINASE MB 3.5 ng/mL (0-5.0)
[2019-04-23] MEDS ORDERED: NON-FORMULARY MEDICATION (Atorvastatin Calcium 40 MG) PO SCH (21:00)
[2019-04-23] MEDS ORDERED: ATORVASTATIN 40 MG TAB PO SCH (21:00)
[2019-04-23 21:17] VITALS: BP 186/95
[2019-04-24] VITALS: BP 166/76
[2019-04-24 04:00] VITALS: BP 145/76
[2019-04-24 05:02] LABS: BASOPHILS % 0.2 % (0.0-1.0); EOSINOPHILS # (AUTO) 0.1 (0.0-0.4); EOSINOPHILS % 1.5 % (0.0-6.0); HEMATOCRIT 35.7 % (38.2-49.6); HEMOGLOBIN 11.9 g/dL (14.0-18.0); LYMPHOCYTES # (AUTO) 1.2 (1.0-3.2); LYMPHOCYTES % 26.5 % (18.0-39.1); MEAN CORPUSCULAR HEMOGLOBIN 33.4 pg (28-32); MEAN CORPUSCULAR HGB CONC 33.3 g/dL (31-35); MEAN CORPUSCULAR VOLUME 100.3 fL (81-99); MONOCYTES # (AUTO) 0.3 (0.2-0.8); MONOCYTES % 7.3 % (4.4-11.3); NEUTROPHILS # (AUTO) 2.9 (2.1-6.9); NEUTROPHILS % 64.3 % (38.7-80.0); PLATELET COUNT 140 x10e3/uL (140-360); RED BLOOD COUNT 3.56 x10e6/uL (4.3-5.7); RED CELL DISTRIBUTION WIDTH 12.2 % (11.7-14.4)
[2019-04-24 05:20] LABS: ALBUMIN 3.9 g/dL (3.5-5.0); ALBUMIN/GLOBULIN RATIO 1.3 (0.8-2.0); ANION GAP 15.9 mmol/L (8-16); CALCIUM 9.8 mg/dL (8.4-10.2); CREATININE, SERUM 1.68 mg/dL (0.72-1.25); POTASSIUM 3.9 mmol/L (3.5-5.1)
[2019-04-24 05:40] LABS: CREATINE KINASE MB 2.8 ng/mL (0-5.0)
--- NOTE | 2019-04-24 06:50 | NUR ---
RECEIVED PATIENT RESTING IN BED. NO ACUTE DISTRESS NOTED, RESPIRATIONS EVEN AND UNLABORED. DENIES PAIN OR DISCOMFORT. CALL LIGHT WITHIN REACH. BED IN THE LOWEST POSITION.
[2019-04-24] MEDS: SODIUM CHLORIDE 0.9% 1000ML 1,000 ML IV SCH (07:06)
[2019-04-24 08:28] VITALS: BP 155/86
[2019-04-24] MEDS: NIFEDIPINE CR 30 MG TAB PO SCH (08:35)
[2019-04-24] MEDS: CARVEDILOL 3.125 MG TAB PO SCH (08:35)
[2019-04-24] MEDS ORDERED: ASPIRIN 325 MG TAB PO SCH (09:00)
[2019-04-24] MEDS ORDERED: HYDROCODONE/APAP 10MG-325MG TAB PO PRN (09:15)
[2019-04-24 09:19] VITALS: BP 155/86
[2019-04-24 11:40] VITALS: BP 163/94
[2019-04-24] MEDS ORDERED: CARVEDILOL12.5 MG PO (11:54)
--- NOTE | 2019-04-24 11:55 | NUR ---
DR. RITTER ROUNDING ON PATIENT. PER MD ZAVALA TO DC PATIENT FROM CARDIOLOGY [facility].
--- NOTE | 2019-04-24 14:07 | Consultation ---
DATE OF CONSULTATION: 04/24/2019 Cardiology Consultation. CONSULTING PHYSICIAN: Kit Mccoy MD, Interventional Cardiology. REASON FOR CONSULTATION: Presyncope. HISTORY OF PRESENT ILLNESS: A 64-year-old man with a history of hypertension, anxiety, depression, and alcohol dependence, overweight, presents with complaints of lightheadedness while sitting at doctor's office. He did not lose consciousness. Episode lasted several minutes and was not associated with chest pain, shortness of breath, palpitations, headaches, or other complaints. He has had no recurrent spells since this one. He has had previous episodes of lightheadedness. On initial exam, he was noted to be somewhat bradycardic. He was on clonidine and carvedilol at home dose as well as other antihypertensives including hydralazine and nifedipine. His workup was remarkable for negative serial cardiac enzymes, preserved left ventricular systolic function on echocardiogram with no significant valvular abnormality, no hemodynamically significant extracranial carotid artery disease, and on telemetry following discontinuation of clonidine and decreasing carvedilol dose, he has remained in sinus rhythm. REVIEW OF SYSTEMS: A 12-systems reviewed and negative except for as noted above. PAST MEDICAL HISTORY: As per HPI significant for hypertension, depression, anxiety, alcohol abuse, overweight, and erectile dysfunction. ALLERGIES: NO KNOWN DRUG ALLERGIES. HOME MEDICATIONS: 1. Clonidine 0.2 mg daily. 2. Hydralazine 100 mg b.i.d. 3. Lipitor 40 mg daily. 4. Nifedipine 90 mg daily. 5. Belt p.r.n. SOCIAL HISTORY: Alcohol use, denies smoking or drugs. FAMILY HISTORY: Significant for hypertension, diabetes. PHYSICAL EXAMINATION: VITAL SIGNS: Temperature 98.8, heart rate 66, respiratory rate 20, blood pressure 163/94, O2 saturation 96% on room air. GENERAL: No acute distress. Alert, active. NECK: No JVD. CHEST: Clear to auscultation. CARDIOVASCULAR: Regular rate and rhythm, normal S1, S2. No S3, no S4. No murmurs, no rubs. ABDOMEN: Soft, nontender, nondistended. EXTREMITIES: No cyanosis, clubbing, or edema. CARDIOVASCULAR MEDICATIONS: Reviewed: 1. Nifedipine extended release 90 mg daily. 2. Aspirin 325 mg daily. 3. Atorvastatin 40 mg at bedtime. 4. Carvedilol 12.5 mg every 12 hours. 5. Hydralazine IV p.r.n. LABORATORY DATA: Studies reviewed: White blood cells 4.5, hemoglobin 11.9, platelets of 140. INR 0.9, PTT 23. Sodium 141, potassium 3.9, chloride 104, bicarbonate 25, BUN 11, creatinine 0.6, glucose 107, AST 99, ALT 97, alkaline phosphatase 80. Serial troponins negative x3. TSH 1.3. Lipase 103, amylase 72, total protein 6.9, albumin 3.9. Brain CT with no acute intracranial abnormalities, mild chronic microvascular changes, mild generalized brain volume loss. Abdominal ultrasound significant for increased hepatic echogenicity, may be severe steatosis or other chronic inflammatory conditions and any determinate, 1.7 cm hypodense lesion in the left hepatic lobe for which alternative imaging modalities can be considered. ASSESSMENT: A 64-year-old man presenting with presyncope. 1. Volume depletion, suspected. 2. Chronic kidney disease versus acute kidney injury on chronic kidney disease. 3. Bradycardia, medication related and resolved with decreased in carvedilol dosing and discontinuation of clonidine. 4. Alcohol abuse. 5. Hypertension. 6. Dyslipidemia. 7. Abnormal LFTs and hypodense lesion in the liver. RECOMMENDATIONS: Okay to discharge from a cardiovascular standpoint with discontinuation of clonidine, and decrease in dose of carvedilol to 12.5 mg every 12 hours. Continue rest of cardiovascular medications. Outpatient telemetry monitoring is advised. Syncope precautions for now are advised. Outpatient imaging for liver lesion also suggested. EtOH cessation counseling provided. MD SHWETA Mackey/MOLLY /[id number]
[2019-04-24 14:36] LABS: CREATINE KINASE MB 2.4 ng/mL (0-5.0)
--- NOTE | 2019-04-24 15:02 | NUR ---
RECEIVED DC ORDER FROM MD. PATIENT IS IN STABLE CONDITION. IV LINE TO RIGHT AC DCD WITH TIP INTACT, PRESSURE APPLIED TO SITE, NO BLEEDING NOTED. DISCHARGE TEACHING PROVIDED TO PATIENT, HE VERBALIZED UNDERSTANDING. DISCHARGE FOLDER WITH PRESCRIPTIONS AND PERSONAL ITEMS ON HAND. PATIENT REFUSED WHEELCHAIR. ACCOMPANIED TO PRIVATE AUTO BY STAFF.
--- NOTE | 2019-04-24 20:33 | Discharge Summary ---
FINAL DISCHARGE DIAGNOSES: 1. Presyncopal episode with lightheadedness and dizziness, likely secondary to dehydration-resolved. 2. Acute kidney injury. 3. Alcoholic liver cirrhosis. 4. Morbidly obese. 5. Chronic back pain. 6. Hypertension. CONSULTANTS: 1. Neurology. 2. Cardiology. PHYSICAL EXAMINATION: VITAL SIGNS: Temperature is 98.8, pulse 66, respiratory rate is 20, blood pressure 163/94, and pulse ox 96% on room air. LABORATORY DATA: White count 4.5, hemoglobin 11.9, hematocrit is 35, and platelets of 140. Coagulation; PT 13, INR 0.95, and PTT 23. Chemistry; sodium 141, potassium is 3.9, chloride is 104, bicarbonate is 25, anion gap of 15, BUN 11, creatinine is 1.68, A1c 4.5, and glucose is 107. Total bilirubin is 0.8, AST 99, and ALT 97. CK slightly elevated. Troponins were all negative. Albumin is 3.9, lipase 122, TSH 1.3, and amylase 72. MICROBIOLOGY: None. IMAGING STUDIES: Abdominal ultrasound shows increased echogenicity can be seen in steatosis or other chronic inflammatory condition. He does have an indeterminate 1.7 cm hypodense lesion in the left hepatic lobe. I discussed with the patient to follow up with his PCP and he verbalized understanding to follow up very closely and also likely need a referral to a GI specialist. He verbalized understanding and agreed to plan of care. Chest x-ray negative. CT brain, no acute intracranial abnormalities. Carotid ultrasound found to be normal. A 2D echo found to be normal. A 2D echo shows an EF of 50% to 55%. Carotid ultrasound shows no evidence of any stenosis. EKG was normal. HOSPITAL COURSE: A 64-year-old male with history of hypertension, comes in with a presyncopal episode that occurred at local [facility] clinics[facility] office. He reported having some lightheadedness and dizziness, but never passed out. No reports of any seizure-like activity or any stroke-like symptoms. No reports of chest pain or any palpitations. The patient was admitted for further evaluation and Cardiology and Neurology were consulted. Cardiology cleared the patient for discharge to home with outpatient followup in his office in 2 weeks. Antihypertensive medications were adjusted accordingly. He did have negative cardiac enzymes. EKG showed no acute findings. A 2D echo showed 55% EF. No further cardiac workup was needed. Neurology evaluated the patient. No further neurological workup was needed. CT brain was found to be negative. He was found to have underlying acute kidney injury secondary to dehydration, but slightly improved prior to discharge. He does have elevated LFTs. He is a chronic alcoholic. I also discussed with him about alcohol cessation. I also discontinued his Lipitor. He did have slight elevation in CK, which could be related to his underlying Lipitor. I advised him to follow up with his PCP on diet and repeat labs. He did have an indeterminate liver lesion and he does have an appointment to see a GI specialist in which he did yesterday, but now he is going to reschedule it. I advised him to follow up with his PCP and also his GI specialist with further imaging and evaluation. He verbalized understanding to follow up closely on that liver cyst versus indeterminate lesion. He was cleared for discharge by all consultants. His blood pressure medications were adjusted accordingly. On discharge, the patient was doing well and had no other complaints. On the day of discharge, vital signs were stable, labs reviewed and stable. The patient is seen and evaluated, examined thoroughly on the day of discharge. No other complaints. The patient verbalized understanding and agrees to plan of care. A followup appointment as an outpatient with primary care physician in 1 week and GI specialist in relation to his hypodense lesion in the left hepatic lobe and Cardiology in 2 weeks' time. Neurology as needed basis. MEDICATIONS: See med reconciliation form. DISPOSITION: Home. CONDITION: Stable. DIET: Heart healthy. In the event of any worsening symptoms, the patient advised to come back to the ED for further evaluation. Discharge summary took greater than 35 minutes. MD MIGUEL Rubin/MOLLY /[id number]
[2019-04-24] MEDS ORDERED: CARVEDILOL 3.125 MG TAB PO SCH (21:00)
== END 2019-04-24 15:03 | disposition home or self-care (01) ==
LOC: ER 10:33 → ERHOLD 12:38 → MED/SURG2 14:34
PROVIDERS: ADMIT Internal Medicine; ATTEND Internal Medicine
DX: E86.0 Dehydration (principal); I10 Essential (primary) hypertension; F10.10 Alcohol abuse, uncomplicated; F41.9 Anxiety disorder, unspecified; F32.9 Major depressive disorder, single episode, unspecified; Z68.27 Body mass index [BMI] 27.0-27.9, adult; N17.9 Acute kidney failure, unspecified; E66.01 Morbid (severe) obesity due to excess calories; K70.30 Alcoholic cirrhosis of liver without ascites; G89.29 Other chronic pain; M54.9 Dorsalgia, unspecified
CPT/HCPCS: 36415 ×2; 70450; 71045; 76700; 80053 ×2; 82150; 82550 ×2; 82553 ×2; 83036; 83690 ×2; 84443; 84484 ×2; 85025 ×2; 85610; 85730; 93005; 93306; 93880; 96361; 99284; G0378 ×2; J2405; J7030 ×2; 96360